=== PATIENT | female | born 1975 | race African-American/Black ===

== ENCOUNTER 2016-06-11 03:15 | Emergency (ER) | payer OTHER ==
[~2016-06-11] VITALS: Ht 172.7 cm; Wt 68.0 kg
[~2016-06-11 03:15] MED LIST: TYLENOL; [UNRECOGNIZED DRUG - REMARK]
[2016-06-11 04:02] VITALS: BP 149/93
--- NOTE | 2016-06-11 04:30 | NUR ---
TO ER BED 8
--- NOTE | 2016-06-11 04:50 | NUR ---
Stanley denis in [facility] - 06/11/16 at 0620 by MEDDM AMBULATED TO ER BED 8
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
[2016-06-11] MEDS ORDERED: KETOROLAC 60 MG/2 ML VIAL IM ONE (05:15)
--- NOTE | 2016-06-11 05:35 | NUR ---
PT BACK ON UNIT FROM XRAY
--- NOTE | 2016-06-11 06:05 | NUR ---
Patient discharged with v/s stable. Written and verbal after care instructions given and explained. Patient alert, oriented and verbalized understanding of instructions. Ambulatory with steady gait. All questions addressed prior to discharge. ID band removed. Patient advised to follow up with PMD. Rx of TYLENOL WITH CODEINE AND MOTRIN given. Patient educated on indication of medication including possible reaction and side effects. Opportunity to ask questions provided and answered.
[2016-06-11 06:06] VITALS: BP 124/71
== END 2016-06-11 06:05 | disposition home or self-care (01) ==
LOC: MED 03:15
DX: S16.1XXA Strain of muscle, fascia and tendon at neck level, initial encounter (principal); R03.0 Elevated blood-pressure reading, without diagnosis of hypertension; Z88.1 Allergy status to other antibiotic agents; Z88.2 Allergy status to sulfonamides; V89.2XXA Person injured in unspecified motor-vehicle accident, traffic, initial encounter; Y93.89 Activity, other specified; Y92.89 Other specified places as the place of occurrence of the external cause; Y99.8 Other external cause status
CPT/HCPCS: 72040; 96372; 99284; J1885

== ENCOUNTER 2018-04-03 15:34 | Emergency (ER) | payer OTHER ==
[~2018-04-03] VITALS: Ht 172.7 cm; Wt 69.9 kg
[2018-04-03 15:40] VITALS: BP 117/76
[2018-04-03] MEDS ORDERED: KETOROLAC 60 MG/2 ML VIAL IM ONE (15:50)
--- NOTE | 2018-04-03 15:50 | NUR ---
C/O DRY HACKING COUGH, BODYACHES, CHILLS, SHARP BURNING ANTERIOR CHEST WALL PAIN X 2 WKS; FATIGUE PAIN INCREASES WITH MOVEMENT OR PALPATION VSS; HOB ELEVATED; BED IN LOWER LOCKED POSITION; BEDRAILS UP X1; GOWN PROVIDED FOR PT. ER MD MADE AWARE OF PATIENTS STATUES. HX: HYPOTHYROD RX: LEVOTHYROXINE
--- NOTE | 2018-04-03 16:13 | NUR ---
pt resting comfortably in [facility] at this time w/ vss and rr even and unlabored. safety rpecautions in place. will continue to monitor.
[2018-04-03 16:57] VITALS: BP 117/76
--- NOTE | 2018-04-03 16:57 | NUR ---
Patient discharged with v/s stable. Written and verbal after care instructions given and explained. Patient alert, oriented and verbalized understanding of instructions. Ambulatory with steady gait. All questions addressed prior to discharge. ID band removed. Patient advised to follow up with PMD. Rx of Prednisone and Motrin given. Patient educated on indication of medication including possible reaction and side effects. Opportunity to ask questions provided and answered.
== END 2018-04-03 16:57 | disposition home or self-care (01) ==
LOC: MED 15:34
DX: J11.1 Influenza due to unidentified influenza virus with other respiratory manifestations (principal); R07.9 Chest pain, unspecified; E03.9 Hypothyroidism, unspecified; Z88.2 Allergy status to sulfonamides; Z88.1 Allergy status to other antibiotic agents
CPT/HCPCS: 81002; 81025; 96372; 99283; J1885

== ENCOUNTER 2018-06-09 02:27 | Emergency (ER) | payer OTHER ==
[~2018-06-09] VITALS: Ht 172.7 cm; Wt 70.3 kg
[2018-06-09 02:30] VITALS: BP 120/82
--- NOTE | 2018-06-09 02:40 | NUR ---
PT BIB SELF FOR VAGINAL PAIN X2 DAYS. PT REPORTS BURNING VAGINAL PAIN AT 10/10 THAT INCREASES WITH URINATION. PT REPORTS VAGINAL EDEMA AND ERYTHEMA. PT DENIES RECENT SEX PARTNERS. PT DENIES N/V OR FEVER. ER MD TO SEE PT. SIDE RAIL UPX1, BED IN LOWEST POSTION, HOB ELEVATED.
[2018-06-09 03:15] LABS: APPEARANCE,URINE SL CLOUDY (CLEAR); BILIRUBIN,URINE NEGATIVE (NEGATIVE); BLOOD, URINE TRACE-I (NEGATIVE); COLOR,URINE YELLOW (YELLOW); LEUKOCYTE ESTERASE ,URINE 3+ (NEGATIVE); NITRITE, URINE NEGATIVE (NEGATIVE); PH,URINE 6.5 (5.0-9.0); UGLUCOSE NEGATIVE (NEGATIVE)
[2018-06-09 03:21] LABS: RBC,URINE 3-10 (FEW) /HPF (0-5)
[2018-06-09] MEDS ORDERED: NITROFURANTOIN 100 MG CAP PO ONE (03:25)
[2018-06-09 03:47] VITALS: BP 120/82
[2018-06-09] MEDS ORDERED: NITROFURANTOIN 100 MG CAP PO SCH (08:00)
== END 2018-06-09 03:47 | disposition home or self-care (01) ==
LOC: MED 02:27
DX: N39.0 Urinary tract infection, site not specified (principal); E03.9 Hypothyroidism, unspecified; Z88.1 Allergy status to other antibiotic agents; Z88.2 Allergy status to sulfonamides
CPT/HCPCS: 81001; 81025; 87086; 99283

== ENCOUNTER 2018-06-10 23:04 | Emergency (ER) | payer OTHER ==
[~2018-06-10] VITALS: Ht 172.7 cm; Wt 70.3 kg
[2018-06-10 23:09] VITALS: BP 130/83
--- NOTE | 2018-06-10 23:09 | NUR ---
TO BED #9 AMBULATORY, REPORT GIVEN TO SENG NETTLES
--- NOTE | 2018-06-10 23:32 | NUR ---
42/F PRESENTS TO ED, C/O LOWER BACK PAIN, X1 DAY. DENIES TRAUMA/INJURY. PT WAS SEEN HERE YESTERDAY, DX UTI. PT REPORTS TAKING RX MACROBID WITH LITTLE IMPROVEMENT IN DYSURIA. PT STATED THAT SHE FELT A MILD CHEST DISCOMFORT AND POSTERIOR HEADACHE THAT SHORTLY RESOLVED AFTER TAKING 2ND DOSE OF MACROBID. PT AOX4, GCS 15, RR EVEN AND UNLABORED. HX HYPOTHYROID
--- NOTE | 2018-06-10 23:40 | NUR ---
Dr. Waters evaluating patient at bedside.
[2018-06-10 23:55] VITALS: BP 131/75
== END 2018-06-10 23:55 | disposition home or self-care (01) ==
LOC: MED 23:04
DX: N39.0 Urinary tract infection, site not specified (principal); R00.2 Palpitations; E03.9 Hypothyroidism, unspecified; Z88.1 Allergy status to other antibiotic agents; Z88.2 Allergy status to sulfonamides
CPT/HCPCS: 81002; 81025; 99283

== ENCOUNTER 2018-06-12 00:56 | Emergency (ER) | payer OTHER ==
[~2018-06-12] VITALS: Ht 172.7 cm; Wt 70.3 kg
[2018-06-12 01:01] VITALS: BP 122/90
--- NOTE | 2018-06-12 01:03 | NUR ---
TO LOBBY A/W BED, RAFAL LEROY NOTED
--- NOTE | 2018-06-12 01:37 | NUR ---
PATIENT LEFT WITHOUT BEING SEEN BY DR. Waters. NO FURTHER CARE PROVIDED FOR PATIENT.
== END 2018-06-12 01:37 | disposition left against medical advice (07) ==
LOC: MED 00:56
DX: M54.5 Low back pain (principal); Z53.21 Procedure and treatment not carried out due to patient leaving prior to being seen by health care provider

== ENCOUNTER 2018-06-12 04:52 | Emergency (ER) | payer OTHER ==
[~2018-06-12] VITALS: Ht 172.7 cm; Wt 70.3 kg
[2018-06-12 04:56] VITALS: BP 136/90
--- NOTE | 2018-06-12 04:56 | NUR ---
TO BED # 9 AMBULATORY, REPORT GIVEN TO GUANACO NETTLES
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
--- NOTE | 2018-06-12 05:45 | NUR ---
Dr. Waters evaluating patient at bedside.
[2018-06-12 06:05] VITALS: BP 136/90
--- NOTE | 2018-06-12 06:05 | NUR ---
Patient discharged with v/s stable. Written and verbal after care instructions given and explained. Patient verbalized understanding. Ambulatory with steady gait. All questions addressed prior to discharge. Advised to follow up with PMD.
== END 2018-06-12 06:05 | disposition home or self-care (01) ==
LOC: MED 04:52
DX: R31.9 Hematuria, unspecified (principal); R53.1 Weakness; E03.9 Hypothyroidism, unspecified; Z88.2 Allergy status to sulfonamides; Z88.1 Allergy status to other antibiotic agents
CPT/HCPCS: 81002; 81025; 99282

== ENCOUNTER 2018-06-16 14:16 | Emergency (ER) | payer OTHER ==
[~2018-06-16] VITALS: Ht 172.7 cm; Wt 69.4 kg
[2018-06-16 14:30] VITALS: BP 130/88
[2018-06-16 15:01] LABS: BASOPHILS % (AUTO) 0.6 % (0.0-2.0); EOSINOPHILS # (AUTO) 0.1 K/uL (0-0.4); EOSINOPHILS % (AUTO) 3.2 % (0.0-4.0); HEMATOCRIT 41.1 % (36-48); HEMOGLOBIN 13.1 g/dL (12.0-16.0); LYMPHOCYTES # (AUTO) 1.9 K/uL (2.5-16.5); LYMPHOCYTES % (AUTO) 45.4 % (20.5-51.1); MEAN CORPUSCULAR HEMOGLOBIN 28 pg (27-31); MEAN CORPUSCULAR HGB CONC 32 g/dL (33-37); MEAN CORPUSCULAR VOLUME 86.3 fL (80-94); MONOCYTES # (AUTO) 0.4 K/uL (0.8-1.0); MONOCYTES % (AUTO) 8.7 % (1.7-9.3); NEUTROPHILS # (AUTO) 1.7 K/uL (1.8-7.7); NEUTROPHILS % (AUTO) 42.1 % (42.2-75.2); PLATELET COUNT (AUTO) 167 K/uL (140-450); RED BLOOD CELL COUNT(AUTO) 4.76 MIL/uL (4.20-5.40); RED CELL DISTRIBUTION WIDTH 13.4 % (11.6-13.7); WHITE BLOOD COUNT (AUTO) 4.1 K/uL (4.8-10.8)
--- NOTE | 2018-06-16 15:11 | NUR ---
PATIENT WAS DX WITH UTI HERE ONE WEEK AGO, WAS GIVEN ABX, PATIENT STATES THAT SHE HAD REACTION TO ABX (CP AND CHILLS), PATIENT ONLY TOOK ABX 4 DAYS. PATIENT REPORTS HAVING FLANK PAIN X2 DAY, PAIN 10/10 CONSTANT ACHE, DENIES PAINFUL URINATION.
[2018-06-16 15:14] LABS: APPEARANCE,URINE CLEAR (CLEAR); BILIRUBIN,URINE NEGATIVE (NEGATIVE); BLOOD, URINE NEGATIVE (NEGATIVE); COLOR,URINE YELLOW (YELLOW); LEUKOCYTE ESTERASE ,URINE NEGATIVE (NEGATIVE); NITRITE, URINE NEGATIVE (NEGATIVE); UGLUCOSE NEGATIVE (NEGATIVE)
[2018-06-16 15:21] LABS: ALBUMIN 4.3 g/dL (3.4-5.0); ANION GAP 11.8 (8-16); POTASSIUM 3.8 mmol/L (3.5-5.1); TOTAL BILIRUBIN 0.3 mg/dL (0.0-1.0)
--- NOTE | 2018-06-16 16:30 | NUR ---
DR LAGUNA AT BEDSIDE.
[2018-06-16 17:14] VITALS: BP 130/88
--- NOTE | 2018-06-16 17:14 | NUR ---
Patient discharged with v/s stable. Written and verbal after care instructions given and explained. Patient alert, oriented and verbalized understanding of instructions. Ambulatory with steady gait. All questions addressed prior to discharge. ID band removed. Patient advised to follow up with PMD. Rx of NORCO, MIRALAX given. Patient educated on indication of medication including possible reaction and side effects. Opportunity to ask questions provided and answered.
== END 2018-06-16 17:14 | disposition home or self-care (01) ==
LOC: MED 14:16
DX: K59.00 Constipation, unspecified (principal); R30.0 Dysuria; E07.9 Disorder of thyroid, unspecified; Z88.1 Allergy status to other antibiotic agents; Z88.2 Allergy status to sulfonamides
CPT/HCPCS: 36415; 80053; 81003; 81025; 84702; 85025; 87086; 99284

== ENCOUNTER 2018-07-08 14:24 | Inpatient (IN) | payer OTHER ==
[~2018-07-08] VITALS: Ht 172.7 cm; Wt 68.5 kg
[2018-07-08 14:30] VITALS: BP 148/89
--- NOTE | 2018-07-08 14:35 | NUR ---
PT TRIAGED, EKG PERFORMED AND PT SENT TO LOBBY AFTER BEING CLEARED BY DR. HACKETT.
--- NOTE | 2018-07-08 15:03 | NUR ---
PT AMBULATED TO BED 4
--- NOTE | 2018-07-08 15:10 | NUR ---
PT BIB SELF C/O L STERNAL CP 02/09 NONRADIATING SINCE YESTERDAY. STATES SHE CAN'T DESCRIBE THE QUALITY OTHER THAN "IT FEELS LIKE A BLOCKAGE" PT TOOK 81 MG ASP BEFORE ARRIVING. DENIES N/V/D, SOB. . DENIES N/V/D; SKIN IS PINK/WARM/DRY; AAOX4 WITH EVEN AND STEADY GAIT; LUNGS CLEAR BL; HR EVEN AND REGULAR; PT DENIES ANY FEVER OR COUGH AT THIS TIME; BEDSIDE MONITOR SHOWS SR 70S, O2 SATS 100%. BP 111/76 VSS; PATIENT POSITIONED FOR COMFORT; HOB ELEVATED; BEDRAILS UP X2; BED DOWN. ER MD MADE AWARE OF PT STATUS.
[2018-07-08] MEDS ORDERED: LORazepam 2 MG/ML VIAL IVP ONE (16:35)
[2018-07-08] MEDS ORDERED: KETOROLAC 30 MG/ML VIAL IVP ONE (16:35)
[2018-07-08] MEDS ORDERED: MORPHINE SULFATE 2 MG/ML SYR IVP ONE (16:35)
[2018-07-08 17:14] LABS: BASOPHILS % (AUTO) 0.6 % (0.0-2.0); EOSINOPHILS # (AUTO) 0.1 K/uL (0-0.4); EOSINOPHILS % (AUTO) 2.8 % (0.0-4.0); HEMATOCRIT 40.4 % (36-48); LYMPHOCYTES # (AUTO) 2.2 K/uL (2.5-16.5); LYMPHOCYTES % (AUTO) 50.9 % (20.5-51.1); MEAN CORPUSCULAR HEMOGLOBIN 28 pg (27-31); MEAN CORPUSCULAR HGB CONC 32 g/dL (33-37); MEAN CORPUSCULAR VOLUME 86.1 fL (80-94); MONOCYTES # (AUTO) 0.3 K/uL (0.8-1.0); MONOCYTES % (AUTO) 7.3 % (1.7-9.3); NEUTROPHILS # (AUTO) 1.7 K/uL (1.8-7.7); NEUTROPHILS % (AUTO) 38.4 % (42.2-75.2); PLATELET COUNT (AUTO) 136 K/uL (140-450); RED BLOOD CELL COUNT(AUTO) 4.69 MIL/uL (4.20-5.40); RED CELL DISTRIBUTION WIDTH 13.3 % (11.6-13.7); WHITE BLOOD COUNT (AUTO) 4.4 K/uL (4.8-10.8)
[2018-07-08 17:25] LABS: ANION GAP 12.5 (8-16); CARBON DIOXIDE 29.6 mmol/L (21-32); CREATININE 0.9 mg/dL (0.6-1.3); POTASSIUM 4.1 mmol/L (3.5-5.1)
--- NOTE | 2018-07-08 17:30 | NUR ---
PATIENT REPORT GIVEN TO TIFFANY NETTLES. TRANSFER OF CARE AT THIS TIME.
[2018-07-08 17:31] LABS: ALBUMIN 4.1 g/dL (3.4-5.0); TOTAL BILIRUBIN 0.3 mg/dL (0.0-1.0)
[2018-07-08 17:33] LABS: PROTHROMBIN TIME 9.7 secs (10.8-13.4)
--- NOTE | 2018-07-08 17:40 | NUR ---
pt stated no pain at this time. vitals stable.
[2018-07-08 17:48] LABS: APPEARANCE,URINE CLEAR (CLEAR); BILIRUBIN,URINE NEGATIVE (NEGATIVE); BLOOD, URINE NEGATIVE (NEGATIVE); COLOR,URINE YELLOW (YELLOW); LEUKOCYTE ESTERASE ,URINE NEGATIVE (NEGATIVE); NITRITE, URINE NEGATIVE (NEGATIVE); PH,URINE 6.5 (5.0-9.0); UGLUCOSE NEGATIVE (NEGATIVE)
[2018-07-08 17:53] LABS: BARBITURATE, URINE NEG. ng/ml (NEG <=200); BENZODIAZEPINE, URINE NEG. ng/mL (NEG <=200); CANNABINOID, URINE NEG. ng/mL (NEG <=50); COCAINE, URINE NEG. ng/mL (NEG <=300); OPIATE, URINE NEG. ng/mL (NEG <=2000); PHENCYCLIDINE SCREEN,URINE NEG. ng/mL (NEG <=25)
--- NOTE | 2018-07-08 19:10 | NUR ---
TRANSFERRED PT TO TELE 111A BY DONYA, ACCOMPANIED WITH RN AND TECH. ALL PERSONAL BELONGINGS WITH PT. PT WALKED FROM HALLWAY TO PT'S ROOM.
--- NOTE | 2018-07-08 19:10 | NUR ---
ADMITTED PT FROM ER VIA DONYA. AAOX4. NO C/O PAIN OR SOB. PT AMBULATES WITHOUT ASSIST. IV TO LEFT AC #20G, PATENT AND INTACT. ORIENTED PT TO ROOM. DISCUSSED PLAN OF CARE, PT VERBALIZED UNDERSTANDING. SAFETY PRECAUTION IN PLACE. CALL LIGHT WITHIN REACH.
[2018-07-08 20:00] VITALS: BP 115/73
--- NOTE | 2018-07-08 20:20 | NUR ---
PAGED DR. LAO FOR ORDERS. DR. BROWNLEE SERVOMECHANISM ASSEMBLER. AWAITING FOR CALL BACK.
[2018-07-08] MEDS ORDERED: KETOROLAC 30 MG/ML VIAL IVP PRN (20:30)
--- NOTE | 2018-07-08 20:30 | NUR ---
RECEIVED A CALL FROM DR. BROWNLEE. ORDERED 2G NA DIET, IV SALINE LOCK, CHEM 7 AND CBC FOR TOMORROW AT 0600 HRS, LOVENOX 40 MG SUBQ DAILY AND TORADOL 30 MG IVP Q6H PRN FOR MOD PAIN.
--- NOTE | 2018-07-08 20:34 | NUR ---
PT LEFT THE UNIT VIA WHEELCHAIR FOR X-RAY CERVICAL SPINE. PT IN STABLE CONDITION.
--- NOTE | 2018-07-08 20:48 | NUR ---
PT CAME BACK FROM X-RAY. NO C/O PAIN OR SOB.
--- NOTE | 2018-07-08 21:30 | NUR ---
PT C/O ROOMMATE WAS VOMITING . PER PT SHE DOESN'T WANT TO STAY IN THE ROOM WITH THE OTHER PT. SPOKE WITH CHARGE NURSE AND TRANSFERRED PT TO ROOM 119A.
--- NOTE | 2018-07-08 23:00 | NUR ---
PT RESTING IN BED. NO C/O PAIN OR SOB. ALL NEEDS MET AT THIS TIME. CALL LIGHT WITHIN REACH.
[2018-07-09] VITALS: BP 119/67
--- NOTE | 2018-07-09 02:35 | NUR ---
PT SLEEPING BUT EASILY AROUSABLE. RESP EVEN AND UNLABORED. NO S/S OF PAIN OR DISCOMFORT NOTED.
[2018-07-09 04:00] VITALS: BP 114/70
--- NOTE | 2018-07-09 05:15 | NUR ---
PT IN BED, AWAKE. DENIES PAIN. NO C/O SOB.
--- NOTE | 2018-07-09 07:15 | NUR ---
ENDORSED PT TO DAY SHIFT NURSE. PT IN STABLE CONDITION.
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
[2018-07-09 07:45] LABS: BASOPHILS % (AUTO) 0.6 % (0.0-2.0); EOSINOPHILS # (AUTO) 0.1 K/uL (0-0.4); EOSINOPHILS % (AUTO) 4.5 % (0.0-4.0); HEMATOCRIT 39.5 % (36-48); HEMOGLOBIN 12.8 g/dL (12.0-16.0); LYMPHOCYTES # (AUTO) 1.5 K/uL (2.5-16.5); LYMPHOCYTES % (AUTO) 46.2 % (20.5-51.1); MEAN CORPUSCULAR HEMOGLOBIN 28 pg (27-31); MEAN CORPUSCULAR HGB CONC 33 g/dL (33-37); MEAN CORPUSCULAR VOLUME 85.8 fL (80-94); MONOCYTES # (AUTO) 0.3 K/uL (0.8-1.0); MONOCYTES % (AUTO) 9.1 % (1.7-9.3); NEUTROPHILS # (AUTO) 1.3 K/uL (1.8-7.7); NEUTROPHILS % (AUTO) 39.6 % (42.2-75.2); PLATELET COUNT (AUTO) 126 K/uL (140-450); RED CELL DISTRIBUTION WIDTH 13.1 % (11.6-13.7); WHITE BLOOD COUNT (AUTO) 3.3 K/uL (4.8-10.8)
[2018-07-09 07:50] VITALS: BP 115/70
[2018-07-09 07:50] LABS: ANION GAP 11.1 (8-16); CARBON DIOXIDE 29.7 mmol/L (21-32); CREATININE 0.9 mg/dL (0.6-1.3); POTASSIUM 4.8 mmol/L (3.5-5.1)
[2018-07-09 08:07] LABS: FREE T4 (FREE THYROXINE) 1.03 ng/dL (0.76-1.46)
[2018-07-09] MEDS ORDERED: ENOXAPARIN 40 MG/0.4 ML SYR SUBQ SCH (09:00)
--- NOTE | 2018-07-09 09:37 | NUR ---
PT SEEN BY MD. WAITING ON ECHO CARDIOGRAM TO BE DONE. PT DENIES LEVONOX . RISK AND BENEFITS EXPLAINED. NO SIGN OF DISTRESS NOTED. PT LYING COMFORTABLY IN HER . WILL CONTINUE TO MONITOR PT.
[2018-07-09] MEDS ORDERED: SYN.075 PO (09:48)
--- NOTE | 2018-07-09 10:15 | NUR ---
PATIENT HAS BEEN SCREENED AND CATEGORIZED MODERATE NUTRITION RISK. PATIENT WILL BE SEEN WITHIN 3-5 DAYS OF ADMISSION. 07/10/18-07/12/[address]
[2018-07-09] MEDS ORDERED: LEVOTHYROXINE 0.075 MG TAB PO SCH (10:26)
--- NOTE | 2018-07-09 10:36 | NUR ---
ADMINISTERED LEVOTHYROXINE TO PT ORDERED. TOLERATED WELL. ASKING ABOUT ECHOCARDIOGRAM. INFORMED HER THAT TECH HAS EKG BEEN NOTIFIED ALREADY. VERBALIZED UNDERSTANDING. WILL CONTINUE TO MONITOR PT.
--- NOTE | 2018-07-09 11:16 | NUR ---
CHECKED ON PT. ASKING IF SHE CAN BE MOVED TO DIFFERENT ROOM SHE IS HAVING ANXIETY PT BEING NEXT TO OTHER PT. PT MOVED TO ROOM 126 B. PT WALED TO ROOM BY HERSELF. NO SIGN OF DISTRESS NOTED. CALL LIGHT WITHIN PT REACH. WILL CONTINUE TO MONITOR PT.
[2018-07-09 12:00] VITALS: BP 106/69
--- NOTE | 2018-07-09 12:24 | NUR ---
CHECKED ON PT. SITTING ON HER BED. VS NORMAL. GAVE HER WARM BLANKET. NO SIGN OF DISTRESSS NOTED. CALL LIGHT WITHIN REACH. WILL CONTINUE TO MONITOR PT.
[2018-07-09] MEDS ORDERED: ALPR0.5T2 PO (13:16)
--- NOTE | 2018-07-09 14:30 | NUR ---
PT DISCHARGED TO HOME WITH SELF CARE. PT PROVIDED WITH HER PRESCRIPTION AND THE HOME MEDS FROM THE PHARMACY. PT VERBALIZED UNDERSTANDING OF DISCHARGE TEACHING. INFORMED HER THAT MD ORDERED TO VISIT PCP AFTER DISCHARGE FOR FURTHER PLAN OF CARE. PT TOOK ALL HER BELONGINGS, STUDENT NURSE WALKED PT OUT THE DOOR AND STABLE AT TIME OF DISCHARGE.
[2018-07-10] MEDS ORDERED: LEVOTHYROXINE 0.075 MG TAB PO SCH ×2 (06:30→09:00)
--- NOTE | 2018-07-11 14:26 | NUR ---
CM NOTE I SPOKE WITH CHLOE OF [facility] (PCP) PH# [phone] TO SET UP PATIENT'S OUTPATIENT FOLLOW UP APPOINTMENT. PER CHLOE, SHE HAS SCHEDULED THE PATIENT'S OUTPATIENT FOLLOW UP APPOINTMENT WITH DR. [facility] ON JULY 19, 2018 AT 12:00 NOON AT THE CLINIC AT [address] [place] [address]. I CALLED AND SPOKE WITH THE PATIENT PH# [phone] AND INFORMED HER OF HER OUTPATIENT FOLLOW UP SCHEDULE.
== END 2018-07-09 14:30 | disposition home or self-care (01) | DRG 203 ==
LOC: MED 14:24 → MTU 18:37 → OBSVTOIN 07-09 10:13 → MMU 07-09 11:20
PROVIDERS: ADMIT Hospitalist; ATTEND Hospitalist
DX: R07.89 Other chest pain (principal); E03.9 Hypothyroidism, unspecified; M54.12 Radiculopathy, cervical region; F41.9 Anxiety disorder, unspecified; Z88.2 Allergy status to sulfonamides; Z88.8 Allergy status to other drugs, medicaments and biological substances; Z82.49 Family history of ischemic heart disease and other diseases of the circulatory system
CPT/HCPCS: 96374; 99285; G0378; 36415; 36600; 71045; 72050; 80048; 80053; 80305; 81003; 81025; 82803; 83735; 83880; 84439; 84443; 84484; 85025; 85379; 85610; 85730; 87081; J1650; J1885; J2060; J2270; Q0092

== ENCOUNTER 2018-07-20 19:31 | Emergency (ER) | payer OTHER ==
[~2018-07-20 19:31] MED LIST changes: +ALPR0.5T2 PO; +SYN.075 PO; -TYLENOL; -[UNRECOGNIZED DRUG - REMARK]
--- NOTE | 2018-07-20 19:53 | NUR ---
CALLED PT NO ANSWER, PT LWBS
--- NOTE | 2018-07-20 20:10 | NUR ---
T WAS CALLED FOR THE 2ND THE TIME , LWJOSEPH
== END 2018-07-20 19:53 | disposition left against medical advice (07) ==
LOC: MED 19:31
DX: R42 Dizziness and giddiness (principal); R11.0 Nausea; Z53.21 Procedure and treatment not carried out due to patient leaving prior to being seen by health care provider

== ENCOUNTER 2018-07-21 03:35 | Emergency (ER) | payer OTHER ==
[~2018-07-21] VITALS: Ht 172.7 cm; Wt 70.9 kg
[2018-07-21 03:52] VITALS: BP 122/82
--- NOTE | 2018-07-21 04:00 | NUR ---
PT AMBULATED TO BED #6
--- NOTE | 2018-07-21 04:03 | NUR ---
PT AMBULATED TO THE RESTROOM
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
--- NOTE | 2018-07-21 04:30 | NUR ---
ER AT BEDSIDE
--- NOTE | 2018-07-21 04:30 | NUR ---
PER ER MD, GUIAC TEST NOT NEEDED AT THIS TIME.
--- NOTE | 2018-07-21 05:12 | NUR ---
BLOOD DRAWN AND TAKEN TO LAB
--- NOTE | 2018-07-21 05:13 | NUR ---
PT TAKEN TO CT
[2018-07-21 05:17] LABS: APPEARANCE,URINE CLEAR (CLEAR); BILIRUBIN,URINE NEGATIVE (NEGATIVE); BLOOD, URINE 3+ (NEGATIVE); COLOR,URINE YELLOW (YELLOW); LEUKOCYTE ESTERASE ,URINE NEGATIVE (NEGATIVE); NITRITE, URINE NEGATIVE (NEGATIVE); UGLUCOSE NEGATIVE (NEGATIVE)
[2018-07-21 05:35] LABS: WBC,URINE 0-5 /HPF (0-5)
[2018-07-21 05:44] LABS: ANION GAP 13.9 (8-16); CARBON DIOXIDE 28.9 mmol/L (21-32); CREATININE 0.8 mg/dL (0.6-1.3); POTASSIUM 3.8 mmol/L (3.5-5.1)
[2018-07-21 05:50] LABS: ALBUMIN 4.2 g/dL (3.4-5.0); TOTAL BILIRUBIN 0.4 mg/dL (0.0-1.0)
[2018-07-21 06:34] LABS: BASOPHILS % (AUTO) 0.7 % (0.0-2.0); EOSINOPHILS # (AUTO) 0.2 K/uL (0-0.4); EOSINOPHILS % (AUTO) 6.2 % (0.0-4.0); HEMATOCRIT 39.6 % (36-48); HEMOGLOBIN 13.3 g/dL (12.0-16.0); LYMPHOCYTES # (AUTO) 1.4 K/uL (2.5-16.5); LYMPHOCYTES % (AUTO) 47.9 % (20.5-51.1); MEAN CORPUSCULAR HEMOGLOBIN 29 pg (27-31); MEAN CORPUSCULAR HGB CONC 34 g/dL (33-37); MONOCYTES # (AUTO) 0.3 K/uL (0.8-1.0); MONOCYTES % (AUTO) 9.7 % (1.7-9.3); NEUTROPHILS # (AUTO) 1.1 K/uL (1.8-7.7); NEUTROPHILS % (AUTO) 35.5 % (42.2-75.2); PLATELET COUNT (AUTO) 151 K/uL (140-450); RED CELL DISTRIBUTION WIDTH 13.6 % (11.6-13.7)
[2018-07-21 06:50] VITALS: BP 122/94
--- NOTE | 2018-07-21 06:50 | NUR ---
Patient discharged with v/s stable. Written and verbal after care instructions given and explained. Patient alert, oriented and verbalized understanding of instructions. Ambulatory with steady gait. All questions addressed prior to discharge. ID band removed. Patient advised to follow up with PMD. Rx of COLACE given. Patient educated on indication of medication including possible reaction and side effects. Opportunity to ask questions provided and answered.
== END 2018-07-21 06:50 | disposition home or self-care (01) ==
LOC: MED 03:35
DX: R10.10 Upper abdominal pain, unspecified (principal); R42 Dizziness and giddiness; K92.1 Melena; J45.909 Unspecified asthma, uncomplicated; E03.9 Hypothyroidism, unspecified; Z88.2 Allergy status to sulfonamides; Z88.8 Allergy status to other drugs, medicaments and biological substances; Z79.899 Other long term (current) drug therapy
CPT/HCPCS: 36415; 80053; 81001; 81002; 81025; 83690; 85025; 99284

== ENCOUNTER 2018-07-21 16:36 | Emergency (ER) | payer OTHER ==
[~2018-07-21] VITALS: Ht 172.7 cm; Wt 70.8 kg
[2018-07-21 16:43] VITALS: BP 125/70
--- NOTE | 2018-07-21 17:15 | NUR ---
C/O NAUSEA,HEADACHE , DIZINESS X 2 DAYS. PT STATED" I FEEL LIKE THE ROOM IS SPINNING". DENIES TRAUMA. MED HX:HYPOTHYROISM MED: LEVOTHYROXIN 75 MG ONCE DAILY
[2018-07-21] MEDS ORDERED: MECLIZINE 25 MG TAB PO ONE (17:25)
[2018-07-21 18:02] VITALS: BP 124/75
== END 2018-07-21 18:02 | disposition home or self-care (01) ==
LOC: MED 16:36
DX: R42 Dizziness and giddiness (principal); J45.909 Unspecified asthma, uncomplicated; E03.9 Hypothyroidism, unspecified; Z88.1 Allergy status to other antibiotic agents; Z88.2 Allergy status to sulfonamides; Z79.899 Other long term (current) drug therapy
CPT/HCPCS: 70450; 81002; 81025; 99284; J8597

== ENCOUNTER 2018-07-21 21:08 | Emergency (ER) | payer OTHER ==
[~2018-07-21] VITALS: Ht 172.7 cm; Wt 70.3 kg
[2018-07-21 21:14] VITALS: BP 111/70
--- NOTE | 2018-07-21 21:23 | NUR ---
to lobby a/w bed, ekg done nsr, vss, amb ermd noted
--- NOTE | 2018-07-21 21:32 | NUR ---
CALLED X 1 NO RESPONSE
--- NOTE | 2018-07-21 21:42 | NUR ---
called x 2 no response
--- NOTE | 2018-07-21 21:53 | NUR ---
TO ER BED 10
[2018-07-21 21:54] LABS: BASOPHILS % (AUTO) 0.6 % (0.0-2.0); EOSINOPHILS # (AUTO) 0.2 K/uL (0-0.4); EOSINOPHILS % (AUTO) 5.3 % (0.0-4.0); HEMATOCRIT 39.2 % (36-48); HEMOGLOBIN 12.9 g/dL (12.0-16.0); LYMPHOCYTES % (AUTO) 48.2 % (20.5-51.1); MEAN CORPUSCULAR HEMOGLOBIN 28 pg (27-31); MEAN CORPUSCULAR HGB CONC 33 g/dL (33-37); MEAN CORPUSCULAR VOLUME 85.6 fL (80-94); MONOCYTES # (AUTO) 0.4 K/uL (0.8-1.0); MONOCYTES % (AUTO) 8.5 % (1.7-9.3); NEUTROPHILS # (AUTO) 1.6 K/uL (1.8-7.7); NEUTROPHILS % (AUTO) 37.4 % (42.2-75.2); PLATELET COUNT (AUTO) 165 K/uL (140-450); RED BLOOD CELL COUNT(AUTO) 4.58 MIL/uL (4.20-5.40); RED CELL DISTRIBUTION WIDTH 13.6 % (11.6-13.7); WHITE BLOOD COUNT (AUTO) 4.2 K/uL (4.8-10.8)
[2018-07-21 22:09] LABS: ALBUMIN 4.1 g/dL (3.4-5.0); ANION GAP 11.9 (8-16); CARBON DIOXIDE 29.4 mmol/L (21-32); POTASSIUM 4.3 mmol/L (3.5-5.1); TOTAL BILIRUBIN 0.3 mg/dL (0.0-1.0)
--- NOTE | 2018-07-21 22:20 | NUR ---
PT PRESENTS TO ED CO CHEST DISCOMFORT S/P TAKING NEW RX OF MECLIZINE. PT STATES SHE WAS SEEN IN ED YESTERDAY FOR DIZZINESS. PT STATED SHE FEELS LIKE SHE "IS HAVING A BAD REACTION TO THE MEDICATION." -- DENIES SOB, N/V -- EKG IN TRIAGE: NSR -- PMH: HYPOTHYROID
[2018-07-21 22:36] VITALS: BP 120/80
--- NOTE | 2018-07-21 22:39 | NUR ---
Patient discharged with v/s stable. Written and verbal after care instructions given and explained. Patient alert, oriented and verbalized understanding of instructions. Ambulatory with steady gait. All questions addressed prior to discharge. ID band removed. Patient advised to follow up with PMD. Rx of Valium given. Patient educated on indication of medication including possible reaction and side effects. Opportunity to ask questions provided and answered.
== END 2018-07-21 22:39 | disposition home or self-care (01) ==
LOC: MED 21:08
DX: H81.10 Benign paroxysmal vertigo, unspecified ear (principal); R07.89 Other chest pain; E03.9 Hypothyroidism, unspecified; Z98.890 Other specified postprocedural states; Z79.899 Other long term (current) drug therapy; Z88.2 Allergy status to sulfonamides; Z88.1 Allergy status to other antibiotic agents
CPT/HCPCS: 36415; 71045; 80053; 84484; 85025; 93005; 99284

== ENCOUNTER 2018-07-23 21:21 | Emergency (ER) | payer OTHER ==
[~2018-07-23] VITALS: Ht 172.7 cm; Wt 67.1 kg
[2018-07-23 21:24] VITALS: BP 136/90
--- NOTE | 2018-07-23 21:24 | NUR ---
TO BED # 05 AMBULATORY , REPORT GIVEN RICHELLE NETTLES
--- NOTE | 2018-07-23 21:43 | NUR ---
Dr. Lester evaluating patient at bedside.
[2018-07-23] MEDS ORDERED: LORazepam 1 MG TAB PO ONE (21:55)
[2018-07-23] MEDS ORDERED: NITROGLYCERIN 0.4 MG TAB SL ONE (21:55)
[2018-07-23] MEDS ORDERED: ASPIRIN 325 MG TAB PO ONE (21:55)
--- NOTE | 2018-07-23 22:00 | NUR ---
pt refusing IV at this time, states she'd like to leave AMA. EDMD aware, form signed.
--- NOTE | 2018-07-23 22:15 | NUR ---
PATIENT STATES SHE DOES NOT WANT MEDICATIONS OR XRAY DONE. IS ONLY AGREEING TO BLOOD WORK AT THIS TIME.
[2018-07-23 22:27] LABS: BASOPHILS % (AUTO) 0.4 % (0.0-2.0); EOSINOPHILS # (AUTO) 0.2 K/uL (0-0.4); EOSINOPHILS % (AUTO) 5.4 % (0.0-4.0); HEMATOCRIT 37.4 % (36-48); HEMOGLOBIN 12.5 g/dL (12.0-16.0); LYMPHOCYTES # (AUTO) 1.5 K/uL (2.5-16.5); LYMPHOCYTES % (AUTO) 34.5 % (20.5-51.1); MEAN CORPUSCULAR HEMOGLOBIN 29 pg (27-31); MEAN CORPUSCULAR HGB CONC 33 g/dL (33-37); MEAN CORPUSCULAR VOLUME 85.5 fL (80-94); MONOCYTES # (AUTO) 0.3 K/uL (0.8-1.0); MONOCYTES % (AUTO) 7.2 % (1.7-9.3); NEUTROPHILS # (AUTO) 2.3 K/uL (1.8-7.7); NEUTROPHILS % (AUTO) 52.5 % (42.2-75.2); PLATELET COUNT (AUTO) 152 K/uL (140-450); RED BLOOD CELL COUNT(AUTO) 4.37 MIL/uL (4.20-5.40); RED CELL DISTRIBUTION WIDTH 13.5 % (11.6-13.7); WHITE BLOOD COUNT (AUTO) 4.4 K/uL (4.8-10.8)
[2018-07-23 22:38] LABS: POTASSIUM 4.1 mmol/L (3.5-5.1)
[2018-07-23 22:39] LABS: ANION GAP 14.6 (8-16); CARBON DIOXIDE 28.5 mmol/L (21-32); CREATININE 0.8 mg/dL (0.6-1.3)
[2018-07-23 22:51] LABS: CREATINE KINASE MB 0.3 ng/mL (0-3.6); TOTAL BILIRUBIN 0.4 mg/dL (0.0-1.0)
[2018-07-23 23:49] VITALS: BP 126/66
--- NOTE | 2018-07-23 23:49 | NUR ---
Patient discharged with v/s stable. Written and verbal after care instructions given and explained. Patient alert, oriented and verbalized understanding of instructions. Ambulatory with steady gait. All questions addressed prior to discharge. ID band removed. Patient advised to follow up with PMD. Rx of MYLANTA given. Patient educated on indication of medication including possible reaction and side effects. Opportunity to ask questions provided and answered.
== END 2018-07-23 23:49 | disposition left against medical advice (07) ==
LOC: MED 21:21
DX: R07.9 Chest pain, unspecified (principal); R63.0 Anorexia; E03.9 Hypothyroidism, unspecified; Z79.899 Other long term (current) drug therapy; Z88.1 Allergy status to other antibiotic agents; Z88.2 Allergy status to sulfonamides
CPT/HCPCS: 36415; 80053; 82550; 82553; 83690; 84484; 85025; 93005; 99284

== ENCOUNTER 2018-08-05 23:02 | Emergency (ER) | payer OTHER ==
[~2018-08-05] VITALS: Ht 172.7 cm; Wt 67.6 kg
[2018-08-05 23:08] VITALS: BP 135/88
--- NOTE | 2018-08-05 23:10 | NUR ---
TO LOBBY A/W BED, AMB, VSS ERMD NOTED , THROAT SWAB DONE AND SENT TO LAB
--- NOTE | 2018-08-05 23:42 | NUR ---
PT AMBULATED TO ER BED 04
--- NOTE | 2018-08-06 00:05 | NUR ---
42/F PRESENTS TO ED, C/O "BALL" ON L SIDE OF NECK. PALPABLE LYMPH NODE ON L SIDE OF NECK. PT REPORTS PAIN. PT REPORTS COUGH X3-4 DAYS. PT DENIES FEVER. AOX4, GCS 15, RR EVEN AND UNLABORED. HX HYPOTHYROID, ANXIETY RX LEVOTHYROXINE, ATIVAN
[2018-08-06 00:43] VITALS: BP 121/86
== END 2018-08-06 00:43 | disposition home or self-care (01) ==
LOC: MED 23:02
DX: R59.0 Localized enlarged lymph nodes (principal); E03.9 Hypothyroidism, unspecified; F41.9 Anxiety disorder, unspecified; Z88.2 Allergy status to sulfonamides; Z88.1 Allergy status to other antibiotic agents; Z88.8 Allergy status to other drugs, medicaments and biological substances; Z79.899 Other long term (current) drug therapy
CPT/HCPCS: 87081; 99283

== ENCOUNTER 2018-08-29 13:29 | Emergency (ER) | payer OTHER ==
[~2018-08-29] VITALS: Ht 172.7 cm; Wt 65.9 kg
[2018-08-29 13:52] VITALS: BP 123/78
--- NOTE | 2018-08-29 14:30 | NUR ---
PT AMB TO CHAIR B
[2018-08-29] MEDS ORDERED: KETOROLAC 30 MG/ML VIAL IM ONE (14:55)
--- NOTE | 2018-08-29 15:00 | NUR ---
PT BIB SELF C/O SORE THROAT 01/10 RADIATING TO R EAR WORSENING TODAY. DENIES CP/SOB/NVD. THROAT IS ERYTHMATIC ON EXAM. NO OTHER COMPLAINTS.
[2018-08-29 15:16] VITALS: BP 125/75
--- NOTE | 2018-08-29 15:16 | NUR ---
Patient discharged with v/s stable. Written and verbal after care instructions given and explained. Patient alert, oriented and verbalized understanding of instructions. Ambulatory with steady gait. All questions addressed prior to discharge. ID band removed. Patient advised to follow up with PMD. Rx of NAPROSYN AND AUGMENTIN given. Patient educated on indication of medication including possible reaction and side effects. Opportunity to ask questions provided and answered.
== END 2018-08-29 15:16 | disposition home or self-care (01) ==
LOC: MED 13:29
DX: H66.91 Otitis media, unspecified, right ear (principal); R59.0 Localized enlarged lymph nodes; E03.9 Hypothyroidism, unspecified; Z79.899 Other long term (current) drug therapy; Z88.2 Allergy status to sulfonamides; Z88.8 Allergy status to other drugs, medicaments and biological substances
CPT/HCPCS: 96372; 99283; J1885

== ENCOUNTER 2018-09-07 20:38 | Emergency (ER) | payer OTHER ==
[~2018-09-07] VITALS: Ht 172.7 cm; Wt 66.3 kg
[2018-09-07 20:55] VITALS: BP 105/73
--- NOTE | 2018-09-07 21:02 | NUR ---
PT AMBULATED BACK TO LOBBYRAFAL
--- NOTE | 2018-09-07 21:30 | NUR ---
42 YO F BIB SELF PPRESENTS TO ED C/O BURNING SENSATION IN HER CHEST X 1 MONTH. PT STATES FEELING LIKE "THERE IS AN OPEN SORE IN HER CHEST" AND ALSO STATES HER LYMPH NODES HAVE BEEN SWOLLEN. PT REPORTS BEING ON ANTIBIOTICS AND THAT SHE CAN NOT EAT ANYTHING HOT, [place]RIS, PEPRM[place], OR SEASONED FOOD. SHE STATES SHE CAN ONLY TOLERATE COLD AND SOFT FOOD. -- DENIES SOB, NV, LIGHTHEADEDNESS, DIZZINESS. SKIN PINK, DRY, WARM. NO DIAPHORESIS NOTED. BREATHING EVEN, UNLABORED. -- PT APPEARS MILDLY ANXIOUS. ALERT, COOPERATIVE, BEHAVIOR APPROPRIATE. PMH-- HYPOTHYRIOD RX-- CURRENTLY TAKING ANTIBIOTICS FROM THE PREVIOUS VISIT AUGMENTIN, LEVOTHYROXINE 75 MCG
--- NOTE | 2018-09-07 21:32 | NUR ---
PT TAKEN TO BED 7
--- NOTE | 2018-09-07 21:39 | NUR ---
Dr. Mcmanus evaluating patient at bedside.
[2018-09-07] MEDS ORDERED: FAMOTIDINE 20 MG TAB PO ONE ×2 (21:45→23:00)
--- NOTE | 2018-09-07 22:00 | NUR ---
PT REFUSED PO PEPCID 40 MG D/T TAKING PRILOSEC EARLIER TODAY. SHE STATES SHE DOES NOT WANT TO "HAVE A BAD REACTION FROM TAKING BOTH MEDICINES". DR. LÓPEZ MADE AWARE. NO NEW ORDERS GIVEN.
[2018-09-07 22:03] LABS: BASOPHILS % (AUTO) 0.5 % (0.0-2.0); EOSINOPHILS # (AUTO) 0.1 K/uL (0-0.4); EOSINOPHILS % (AUTO) 3.4 % (0.0-4.0); HEMATOCRIT 38.1 % (36-48); HEMOGLOBIN 12.5 g/dL (12.0-16.0); LYMPHOCYTES # (AUTO) 1.7 K/uL (2.5-16.5); LYMPHOCYTES % (AUTO) 42.6 % (20.5-51.1); MEAN CORPUSCULAR HEMOGLOBIN 28 pg (27-31); MEAN CORPUSCULAR HGB CONC 33 g/dL (33-37); MEAN CORPUSCULAR VOLUME 86.1 fL (80-94); MONOCYTES # (AUTO) 0.3 K/uL (0.8-1.0); MONOCYTES % (AUTO) 8.5 % (1.7-9.3); NEUTROPHILS # (AUTO) 1.8 K/uL (1.8-7.7); PLATELET COUNT (AUTO) 135 K/uL (140-450); RED BLOOD CELL COUNT(AUTO) 4.43 MIL/uL (4.20-5.40); RED CELL DISTRIBUTION WIDTH 13.3 % (11.6-13.7)
[2018-09-07 22:41] LABS: ALBUMIN 3.8 g/dL (3.4-5.0); CREATININE 0.9 mg/dL (0.6-1.3); TOTAL BILIRUBIN 0.3 mg/dL (0.0-1.0)
[2018-09-07 22:42] LABS: ANION GAP 9.2 (8-16); POTASSIUM 4.2 mmol/L (3.5-5.1)
--- NOTE | 2018-09-07 22:59 | NUR ---
PT STATES SHE WILL TAKE PO PEPCID 40 MG.
[2018-09-07 23:46] VITALS: BP 124/74
== END 2018-09-07 23:39 | disposition home or self-care (01) ==
LOC: MED 20:38
DX: K29.70 Gastritis, unspecified, without bleeding (principal); E03.9 Hypothyroidism, unspecified; Z79.899 Other long term (current) drug therapy; Z88.2 Allergy status to sulfonamides; Z88.1 Allergy status to other antibiotic agents; Z88.8 Allergy status to other drugs, medicaments and biological substances
CPT/HCPCS: 36415; 80053; 85025; 99283

== ENCOUNTER 2018-09-27 23:02 | Emergency (ER) | payer OTHER ==
[~2018-09-27] VITALS: Ht 172.7 cm; Wt 65.8 kg
[2018-09-27 23:20] VITALS: BP 134/86
--- NOTE | 2018-09-27 23:20 | NUR ---
TO LOBBY A/W BED, AMBULATORY
--- NOTE | 2018-09-28 00:52 | NUR ---
PT TAKEN TO BED 6
--- NOTE | 2018-09-28 01:00 | NUR ---
PT BIB SELF C/O STOMACH ACID. PT STATES AROUND 1800 SHE STARTED HAVING A BURNING SENSATION IN HER ABDOMIN THAT RADIATED UP TO HER HEAD AND EYES. PT STATES 0/10 PAIN AT THIS TIME. PT ACTING APPROPRIATLY. BOWEL SOUNDS ACTIVE THROUGH OUT. BREATHING EQUAL AND UNLABORED, SPEAKING IN CLEAR AND COMPLETE SENTENCES. PENDING ERMD EVAL. PMH: GERD, H-PYLORI
[2018-09-28] MEDS ORDERED: KETOROLAC 60 MG/2 ML VIAL IM ONE (01:20)
--- NOTE | 2018-09-28 01:25 | NUR ---
PATIENT REFUSED MEDICATION, ERMNorth NOTED, TO SEE THE PATIENT.
--- NOTE | 2018-09-28 02:54 | NUR ---
Dr. Waters evaluating patient at bedside.
--- NOTE | 2018-09-28 03:00 | NUR ---
Patient discharged with v/s stable. Patient acting approrpaitly, states 0/10 pain and is ready to go home. Written and verbal after care instructions given and explained. Patient alert, oriented and verbalized understanding of instructions. Ambulatory with steady gait. All questions addressed prior to discharge. ID band removed. Patient advised to follow up with PMD. Rx of Prilosec given. Patient educated on indication of medication including possible reaction and side effects. Opportunity to ask questions provided and answered.
[2018-09-28 03:01] VITALS: BP 128/73
== END 2018-09-28 03:00 | disposition home or self-care (01) ==
LOC: MED 23:02
DX: K21.9 Gastro-esophageal reflux disease without esophagitis (principal); Z79.899 Other long term (current) drug therapy; Z88.2 Allergy status to sulfonamides; Z88.1 Allergy status to other antibiotic agents; Z88.8 Allergy status to other drugs, medicaments and biological substances
CPT/HCPCS: 81002; 81025; 99282; 99283; J1885

== ENCOUNTER 2018-11-14 19:18 | Emergency (ER) | payer OTHER ==
[~2018-11-14] VITALS: Ht 172.7 cm; Wt 59.9 kg
[2018-11-14 19:35] VITALS: BP 116/76
--- NOTE | 2018-11-14 19:40 | NUR ---
Patient came in with c/o anxiety, n/v, itchy, light head for 1 day. Patient has been taking lorazepam for about 3 weeks but has been taking more than the prescribed amount. Patient states she was seen by pcp yesterday and was told to stop rx of lorazepam, and informed her of possibility of addiction along with side effects and withdrawal symptoms. Patient is concerned she "might be going through withdrawals." Pt took 3 tablets of 0.5 mg of lorazepam today and wants to stop taking them but when she didn't take her usual afternoon dose she started getting these symptoms. PATIENT STATES PAIN OF 0/10 AT THIS TIME; VSS; PATIENT POSITIONED FOR COMFORT; HOB ELEVATED; BEDRAILS UP X2; BED DOWN. ER MD MADE AWARE OF PT STATUS.
[2018-11-14] MEDS ORDERED: hydrOXYzine HCL 25 MG TAB PO PRN (21:00)
[2018-11-14 21:10] VITALS: BP 107/67
--- NOTE | 2018-11-14 21:10 | NUR ---
Patient discharged with v/s stable. Written and verbal after care instructions given and explained. Patient alert, oriented and verbalized understanding of instructions. Ambulatory with steady gait. All questions addressed prior to discharge. ID band removed. Patient advised to follow up with PMD. Rx of ATARAX 25MG given. Patient educated on indication of medication including possible reaction and side effects. Opportunity to ask questions provided and answered.
== END 2018-11-14 21:10 | disposition home or self-care (01) ==
LOC: MED 19:18
DX: F41.9 Anxiety disorder, unspecified (principal); K21.9 Gastro-esophageal reflux disease without esophagitis; E07.9 Disorder of thyroid, unspecified; Z79.899 Other long term (current) drug therapy; Z88.6 Allergy status to analgesic agent; Z88.1 Allergy status to other antibiotic agents; Z88.8 Allergy status to other drugs, medicaments and biological substances
CPT/HCPCS: 99284

== ENCOUNTER 2018-11-24 02:07 | Emergency (ER) | payer OTHER ==
[~2018-11-24] VITALS: Ht 172.7 cm; Wt 62.1 kg
[2018-11-24 02:14] VITALS: BP 131/77
--- NOTE | 2018-11-24 02:20 | NUR ---
PT AMBULATED TO ROOM 5 Addendum: 11/24/18 at 0227 by MEDGJ PT AMBULATED TO ROOM 6
--- NOTE | 2018-11-24 02:31 | NUR ---
43/F SHARP ABD PAIN X1 DAYS 10/10 BURNING AND TWISTING SENSATION. +N/V CHILLS. HX HYPOTHYROID GERD. AFEBRILE. GUARDED. AOX4. ABLE TO VERBALIZE NEEDS. BED IN LOWEST POSITION. WILL CONTINUE TO MONITOR.
[2018-11-24] MEDS ORDERED: NACL 0.9% 500 ML IV ONE (02:36)
[2018-11-24] MEDS ORDERED: ONDANSETRON 4 MG/2 ML VIAL IVP ONE (02:40)
[2018-11-24] MEDS ORDERED: PANTOPRAZOLE 40 MG INJ VIAL IVP ONE (02:40)
[2018-11-24] MEDS ORDERED: KETOROLAC 30 MG/ML VIAL IVP ONE (02:40)
[2018-11-24 02:50] LABS: BASOPHILS % (AUTO) 0.4 % (0.0-2.0); EOSINOPHILS # (AUTO) 0.1 K/uL (0-0.4); EOSINOPHILS % (AUTO) 2.1 % (0.0-4.0); HEMATOCRIT 35.7 % (36-48); HEMOGLOBIN 11.9 g/dL (12.0-16.0); LYMPHOCYTES # (AUTO) 1.6 K/uL (2.5-16.5); LYMPHOCYTES % (AUTO) 38.6 % (20.5-51.1); MEAN CORPUSCULAR HEMOGLOBIN 28 pg (27-31); MEAN CORPUSCULAR HGB CONC 33 g/dL (33-37); MEAN CORPUSCULAR VOLUME 83.8 fL (80-94); MONOCYTES # (AUTO) 0.3 K/uL (0.8-1.0); MONOCYTES % (AUTO) 7.8 % (1.7-9.3); NEUTROPHILS # (AUTO) 2.1 K/uL (1.8-7.7); NEUTROPHILS % (AUTO) 51.1 % (42.2-75.2); PLATELET COUNT (AUTO) 130 K/uL (140-450); RED BLOOD CELL COUNT(AUTO) 4.26 MIL/uL (4.20-5.40); RED CELL DISTRIBUTION WIDTH 13.7 % (11.6-13.7); WHITE BLOOD COUNT (AUTO) 4.1 K/uL (4.8-10.8)
[2018-11-24 03:04] LABS: ALBUMIN 3.8 g/dL (3.4-5.0); ANION GAP 11.4 (8-16); CARBON DIOXIDE 27.2 mmol/L (21-32); CREATININE 0.9 mg/dL (0.6-1.3); POTASSIUM 3.6 mmol/L (3.5-5.1); TOTAL BILIRUBIN 0.4 mg/dL (0.0-1.0)
--- NOTE | 2018-11-24 04:05 | NUR ---
Patient discharged with v/s stable. Written and verbal after care instructions given and explained. Patient alert, oriented and verbalized understanding of instructions. Ambulatory with steady gait. All questions addressed prior to discharge. ID band removed. Patient advised to follow up with PMD. Rx of PROTONIX, ZOFRAN, TRAMADOL given. Patient educated on indication of medication including possible reaction and side effects. Opportunity to ask questions provided and answered.
[2018-11-24 04:06] VITALS: BP 131/77
== END 2018-11-24 04:05 | disposition home or self-care (01) ==
LOC: MED 02:07
DX: K29.70 Gastritis, unspecified, without bleeding (principal); K21.9 Gastro-esophageal reflux disease without esophagitis; M54.9 Dorsalgia, unspecified; E07.9 Disorder of thyroid, unspecified; Z79.899 Other long term (current) drug therapy; Z88.1 Allergy status to other antibiotic agents; Z88.2 Allergy status to sulfonamides; Z88.8 Allergy status to other drugs, medicaments and biological substances
CPT/HCPCS: 36415; 76705; 80053; 81002; 81025; 83690; 85025; 96361; 96374; 96375; 99284; C9113; J1885; J2405; J7030; Q0092

== ENCOUNTER 2023-12-25 01:37 | Emergency (ER) | payer OTHER ==
[~2023-12-25] VITALS: Ht 167.6 cm; Wt 70.8 kg
[2023-12-25 01:44] VITALS: BP 128/89; PULSE 69; RESP 14; TEMP 98.6; O2SAT 98
[2023-12-25] MEDS ORDERED: DIPH25TA41 PO (02:11)
[2023-12-25] MEDS ORDERED: HYDR28OI3 TP (02:11)
[2023-12-25 02:17] VITALS: BP 128/89; PULSE 69; RESP 14; TEMP 98.6; O2SAT 98
== END 2023-12-25 02:17 | disposition home or self-care (01) ==
LOC: MED 01:37
DX: L29.9 Pruritus, unspecified (principal); K21.9 Gastro-esophageal reflux disease without esophagitis; Z86.39 Personal history of other endocrine, nutritional and metabolic disease; Z79.899 Other long term (current) drug therapy; Z88.2 Allergy status to sulfonamides; Z88.1 Allergy status to other antibiotic agents
CPT/HCPCS: 99282